=== PATIENT | female | born 1965 | race Caucasian/White ===

== ENCOUNTER 2017-01-16 15:59 | Emergency (ER) | payer OTHER, BC ==
[2017-01-16 16:15] VITALS: BP 188/98
--- NOTE | 2017-01-16 16:41 | EDM.PDOC ---
ED HPI GENERAL MEDICAL PROBLEM - General Chief Complaint: Back Pain or Injury Stated Complaint: Back pain Time Seen by Provider: 01/16/17 16:20 Source of Information: Reports: Patient, RN Notes Reviewed History Limitations: Reports: No Limitations - History of Present Illness INITIAL COMMENTS - FREE TEXT/NARRATIVE: 51 year old female presents to the ED with complaints of back pain that radiates down her right leg. She has associated numbness and tingling to the right leg. She says her numbness and tingling symptoms are intermittent. At times she feels like her leg "falls asleep." She has no weakness or difficulty walking. No loss of bowel or bladder function. No saddle anesthesia. Pain is worse with bending and lifting. She does a lot of heavy lifting at work. She is seeing a chiropractor. She also sees Sandra Ruiz PAC with Dr. Davey for knee pain. She also sees a provider at the [facility]. She's been told that she needs an MRI of her back. She's had no recent injury or fall. Treatments BINDERY LIBRARY TECHNICAL ASSISTANT: Reports: Acetaminophen Other Treatments BINDERY LIBRARY TECHNICAL ASSISTANT: 30 minutes ago Back Pain Score (Numeric/FACES): 8 - Related Data Allergies Allergy/AdvReac Type Severity Reaction Status Date / Time carisoprodol [From Soma] Allergy Rash Verified 01/16/17 16:42 methocarbamol Allergy Rash Verified 01/16/17 16:42 procaine [From Novocain] Allergy Airway Verified 01/16/17 16:42 Tightness Sulfa (Sulfonamide Allergy Rash Verified 01/16/17 16:42 Antibiotics) tramadol [From Ultram] Allergy Cannot Verified 01/16/17 16:42 Remember lisinopril AdvReac Cough Verified 01/16/17 16:42 Home Meds: Home Meds Aspirin [Ecotrin] 81 mg PO DAILY 12/27/15 [History] Insulin Glargine,Hum.Rec.Anlog [Lantus Solostar] 20 units SQ QAM 12/27/15 [ History] Losartan [Cozaar] 12.5 mg PO DAILY 12/27/15 [History] Omeprazole 20 mg PO BID 12/27/15 [History] Saxagliptin HCl [Onglyza] 5 mg PO BEDTIME 12/27/15 [History] glipiZIDE [Glucotrol] 10 mg PO BID 12/27/15 [History] metFORMIN HCl [Metformin HCl] 1,000 mg PO BID 12/27/15 [History] Gluc/Deejay-Msm#2/C/D3/Ross/Born [Pytlkozgrp-Bflhrgtsymq-HMF] 1 oz PO DAILY [History] Cyclobenzaprine [Flexeril] 10 mg PO TID PRN #40 tablet 12/29/15 [Rx] hydrOXYzine HCl [Atarax] 25 mg PO Q6H PRN #40 tablet 12/29/15 [Rx] Acetaminophen/HYDROcodone [[place] 325-5 MG] 1 - 2 tab PO Q4H PRN #60 tablet 12/29 [Rx] Ondansetron [Zofran ODT] 4 mg PO Q6H PRN #30 tab.dis 12/30/15 [Rx] Rivaroxaban [Xarelto] 10 mg PO DAILY #13 tablet 12/30/15 [Rx] Acetaminophen/HYDROcodone [[place] 325-5 MG] 1 - 2 tab PO Q4H PRN #20 tablet 01/16 [Rx] Orphenadrine [Norflex] 100 mg PO BID #15 tab.er 01/16/17 [Rx] predniSONE [Prednisone] 20 mg PO BID #10 tablet 01/16/17 [Rx] Past Medical History HEENT History: Reports: Impaired Vision Cardiovascular History: Reports: High Cholesterol, Hypertension Respiratory History: Reports: Other (See Below) Other Respiratory History: PCP thinks has sleep apnea but has never done a study Gastrointestinal History: Reports: GERD, Irritable Bowel Syndrome Genitourinary History: Reports: Renal Calculus, Other (See Below) Other Genitourinary History: Losartan to protect kidneys. WEB SPECIALIST History: Reports: Endometriosis Musculoskeletal History: Reports: Back Pain, Chronic, Other (See Below) Other Musculoskeletal History: scoliosis Neurological History: Reports: Concussion, Migraines Endocrine/Metabolic History: Reports: Diabetes, Type II, Obesity/BMI 30+ Immunologic History: Reports: Other (See Below) Other Immunologic History: seasonal allergies. - Infectious Disease History Infectious Disease History: Reports: Chicken Pox - Past Surgical History Female Surgical History: Reports: Breast Reconstruction, Section, Hysterectomy, Kidney stone extraction, Other (See Below) Neurological Surgical History: Reports: None Musculoskeletal Surgical History: Reports: Knee Replacement, Other (See Below) Social & Family History - Family History Cardiac: Reports: Bypass, Heart Failure, Hypertension GI: Reports: GERD, Irritable Bowel Syndrome : Reports: Renal Calculus OBGYN: Reports: Endometriosis Musculoskeletal: Reports: Arthritis Neurological: Reports: Migraines, Seizure Endocrine/Metabolic: Reports: Diabetes, Gestational, Diabetes, type II, Hypothyroidism Dermatologic: Reports: Eczema, Psoriasis Oncologic: Reports: Leukemia - Tobacco Use Smoking Status *Q: Never Smoker Second Hand Smoke Exposure: No - Caffeine Use Caffeine Use: Reports: Soda Caffeine Use Comment: drinks way too much - Alcohol Use Days Per Week of Alcohol Use: 0 Number of Drinks Per Day: 0 Total Drinks Per Week: 0 - Recreational Drug Use Recreational Drug Use: No - Living Situation & Occupation Living situation: Reports: with Family Occupation: Employed ED ROS GENERAL - Review of Systems Review Of Systems: See Below Constitutional: Reports: No Symptoms. Denies: Fever, Chills Respiratory: Reports: No Symptoms. Denies: Shortness of Breath Cardiovascular: Reports: No Symptoms. Denies: Chest Pain GI/Abdominal: Reports: No Symptoms. Denies: Abdominal Pain, Nausea, Vomiting : Reports: No Symptoms. Denies: Dysuria, Flank Pain, Frequency Musculoskeletal: Reports: Back Pain Neurological: Reports: Numbness, Tingling. Denies: Difficulty Walking, Weakness ED EXAM,LOWER BACK PAIN/INJURY - Physical Exam Exam: See Below Exam Limited By: No Limitations General Appearance: Alert, WD/WN, Moderate Distress Respiratory/Chest: No Respiratory Distress, Lungs Clear, Normal Breath Sounds Cardiovascular: Regular Rate, Rhythm GI/Abdominal: Normal Bowel Sounds, Soft, Non-Tender Back Exam: Normal Inspection, Full Range of Motion, Muscle Spasm, Paraspinal Tenderness, Other (Tenderness with palpation over the right SI joint. Palpation of the SI joint reproduces "shooting" pain down her right leg. She has no bony step offs or crepitus with palpation of her spine. Positive straight leg raise on the right. Negative exam on the left. ). No: CVA Tenderness (L), CVA Tenderness (R) Neurological: Alert, Normal Mood/Affect, Normal Dorsiflexion, Normal Plantar Flexion, Normal Gait, Straight Leg Raise (R). No: Abnormal Light Touch, Abnormal Motor, Abn 2 Pt Discrimination, Straight Leg Raise (L), Saddle Anesthesia, Difficulty Walking Skin Exam: Warm, Dry, Intact Course - Vital Signs Last Recorded V/S: Last Vital Signs Temp 97.0 F 01/16/17 16:13 Pulse 107 H 01/16/17 16:13 Resp BP 188/98 H 01/16/17 16:13 Pulse Ox 98 01/16/17 16:13 - Orders/Labs/Meds Meds: Medications Discontinued Medications Generic Name Dose Route Start Last Admin Trade Name Freq PRN Reason Stop Dose Admin Ketorolac Tromethamine 60 mg 01/16/17 16:47 01/16/17 16:55 Toradol IM 01/16/17 16:48 60 mg ONETIME ONE Administration - Re-Assessments/Exams Free Text/Narrative Re-Assessment/Exam: Treated with Toradol 60mg IM x1 dose. Exam is consistent with sciatica. No saddle anesthesia or cauda equina. MRI likely needed as an outpatient due to numbness and tingling on right leg. Discussed treatment with Dr. Casiano as the patient is on Xarelto. He recommends treating with prednisone. Will also start her on a muscle relaxer and [place] PRN. She was instructed to f/u with her PCP or [facility] to discuss MRI. Educated on return precautions. Discharge instructions as documented. Departure - Departure Time of Disposition: 16:37 Disposition: Home, Self-Care 01 Condition: Good Clinical Impression: Sciatica, right side - Discharge Information Prescriptions: Acetaminophen/HYDROcodone [[place] 325-5 MG] 1 - 2 tab PO Q4H PRN #20 tablet PRN Reason: Pain RX: Orphenadrine [Norflex] 100 mg PO BID #15 tab.er predniSONE [Prednisone] 20 mg PO BID #10 tablet Instructions: Sciatica, [id number] Referrals: Veronica Hurtado DO [Primary Care Provider] - Forms: ED Department Discharge Additional Instructions: Follow-up with your PCP or Sandra TOPETE to discuss MRI of your back Prednisone 20mg twice a day for 7 days Orphenadrine (Norflex) 100mg every 12 hours as needed for muscle spasm [place] (Hydrocodone/apap) 1-2 tabs every 4-6 hours as needed for pain No driving for at least 6-8 hours after taking hydrocodone Do not exceed 4000mg of Tylenol per day. ([place] contains 325mg of tylenol per tab) Return to ER with new or worsening symptoms, loss of bowel or bladder function, or additional concerns
[2017-01-16] MEDS ORDERED: Ketorolac 60 MG/2 ML SDV IM ONE (16:47)
== END 2017-01-16 16:50 | disposition home or self-care (01) ==
LOC: JD.ED 15:59
DX: M54.31 Sciatica, right side (principal); I10 Essential (primary) hypertension; E78.00 Pure hypercholesterolemia, unspecified; E11.9 Type 2 diabetes mellitus without complications; K21.9 Gastro-esophageal reflux disease without esophagitis; Z79.4 Long term (current) use of insulin; Z79.899 Other long term (current) drug therapy; Z88.2 Allergy status to sulfonamides; Z88.5 Allergy status to narcotic agent; Z88.8 Allergy status to other drugs, medicaments and biological substances; Z79.82 Long term (current) use of aspirin
CPT/HCPCS: 96372; 99283; J1885